=== PATIENT | female | born 1970 | race Caucasian/White ===

== ENCOUNTER 2024-11-20 06:22 | Emergency (ER) | payer BC, SELFPAY ==
[2024-11-20 06:24] VITALS: BP 166/102
--- NOTE | 2024-11-20 06:48 | ED.GENMED ---
History of Present Illness
General
Chief Complaint: Back Pain
Source: patient
Exam Limitations: none
Time Seen by Provider: 11/20/24 06:32
Nursing documentation reviewed up to this point in time: agreed with
History of Present Illness
History of Present Illness:
54-year-old female presents emergency room due to left-sided back pain, numbness and inability of the bathroom. She is having trouble urinating and having bowel movements.
Past History
Past History
ED Past Medical History: Cancer (Breast cancer) and Other (Back pain, sciatica)
ED Past Surgical History: Other (Bilateral mastectomy)
Social History
Tobacco: Non-smoker
Alcohol: None
Drug: None
Review of Systems
Review of Systems
Allergies reviewed?: Yes
All Other Systems: Not applicable
Constitutional: Reports no symptoms
EENT: Reports no symptoms
Respiratory: Reports no symptoms
Cardiac: Reports no symptoms
ABD/GI: Reports no symptoms
: Reports difficulty voiding
Musculoskeletal: Reports back pain
Skin: Reports no symptoms
Neurological: Reports numbness
Endocrine: Reports no symptoms
Hematologic/Lymphatic: Reports no symptoms
Psychiatric: Reports no symptoms
Phy Exam
Physical Exam
Physical Exam:
Physical Exam
General: Afebrile, blood pressure 166/102
Neck: supple. no meningeal signs. normal posterior pharynx
Heart: s1/s2 tachycardia, no murmur. equal radial
pulses.
HEENT: Pupils equal round reactive to light, EOMI
Lungs: no acute respiratory distress. clear bilaterally
Abdomen: normal bowel sounds. not tender. no CVAT
Neuro: alert and oriented. no focal neurological deficits cranial nerves II through XII intact
Skin: no rash
Psychiatric: well kept. interactive and cooperative
Extremities: no edema. no calf tenderness. negative homans. good distal pulses
Course
Orders/Labs/Results
Orders:
Orders
11/20/24 06:43
Bladder Scan- Treatment ONCE
IV Insert/Care/Rem.- Treatment PRN
11/20/24 07:16
Complete Blood Count/With Diff Urgent
Comprehensive Metabolic Panel Urgent
Urinalysis Reflex To Culture Urgent
Date Specimen was Collected: 11/20/24
Time Specimen was Collected: 07:03
Urine Microscopic Reflex Cult Urgent
Urine Culture Urgent
KARL Source: U
Specimen Description:
Obtained by: Random
Date Specimen was Collected: 11/20/24
Time Specimen was Collected: 07:03
11/20/24 07:24
MR Lumbar Without Contrast Urgent
Comment:
Reason For Exam: numbness left leg/groin/buttocks inability to void
Recent pill cam endoscopy?: No
11/20/24 08:02
Ketorolac [Toradol] 15 mg IV NOW STA
11/20/24 10:56
Acetaminophen [Tylenol] 650 mg PO NOW STA
11/20/24 11:19
CT Pelvis With Iv Contrast Urgent
Comment: concern for sacral met, pls include all sacrum
Reason For Exam: low back pain, difficulty urinating
11/20/24 13:24
HYDROmorphone [Dilaudid] 1 mg .ROUTE .STK-MED ONE
Ondansetron Injectable [Zofran] 4 mg .ROUTE .STK-MED ONE
11/20/24 13:27
HYDROmorphone [Dilaudid] 1 mg IV NOW STA
Ondansetron Injectable [Zofran] 4 mg IV NOW STA
Abnormal Lab Results
11/20/24
07:16
RBC 4.19 L 10^6/uL
(4.20-5.40)
Hct 35.9 L %
(37.0-47.0)
BUN 20 H mg/dl
(7-17)
Ur Occult Blood Reflex 2+ A
(Negative)
Leukocyte Esterase Rfl 3+ A
(Negative)
Urine RBC 3-6 A /HPF
(0-2)
Urine Bacteria (Reflex) Moderate A
(Negative)
Urine Albumin (Reflex) 1+ A
(Neg - Trace)
11/20/24 07:16
11/20/24 07:16
Vital Signs
Initial and Last Documented VS:
Initial Vital Signs
Temp Pulse Resp BP Pulse Ox
98.1 F 118 26 166/102 98
11/20/24 06:24 11/20/24 06:24 11/20/24 06:24 11/20/24 06:24 11/20/24 06:24
Last Documented Vital Signs
Temp Pulse Resp BP Pulse Ox
98.1 F 94 18 152/85 98
11/20/24 06:24 11/20/24 13:23 11/20/24 13:23 11/20/24 13:23 11/20/24 06:24
MDM/Problems Addressed
Differential Diagnosis Includes:
Cauda equina, metastasis, radiculopathy
MDM/Problems Addressed:
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 Stable for discharge follow-up with oncology orthopedics.
Chronic conditions affecting care: Cancer
Acute Exacerbation and/or Progression of Chronic Illness: Cancer
*Radiology
Radiology exam reviewed: radiology read reviewed (CT and MRI shows soft tissue lesion lumbosacral region and S1 nerve root impingement)
*Pulse Oximetry
Patient hypoxic: no
*Critical Care Note
Total Time (30-74mins, 75-104mins- exclusive of procedures): Not Applicable
Patient Management
Social determinants of health affecting care: Living situation and Strong social support
Discussion with other providers: Radiologist
Escalation/DeEscalation of care consider admission/obs:
Admit not indicated
ED Attending Note
-
Portions of this chart may have been created with voice recognition software.� Occasional wrong word or��sound alike� substitutions may have occurred due to the inherent limitations of voice recognition software.
Discharge Plan
Departure
Patient Disposition: Home (Routine Discharge)
Date of Disposition: 11/20/24
Time of Disposition: 14:18
Patient with high blood pressure during this ER visit?: Yes
Condition: Good
Discharge Problem:
Sciatica associated with disorder of lumbosacral spine, Soft tissue mass
Instructions: Sciatica (DC), Radiculopathy (DC)
Prescriptions:
New
tramadol 50 mg tablet
50 mg PO Q8H PRN (Reason: Pain) Qty: 10 0RF
Referrals:
Jason Peters, [Family Provider] -
Activity Restrictions/Additional Instructions:
Follow-up with your orthopedist, as well as your oncologist. Return for any concerns.
Interventions
Interventions:
*Risk Screen - Suicide Last Done: 11/20/24 06:24
*General Assessment Last Done: 11/20/24 07:05
*Neglect/Abuse Screening Last Done: 11/20/24 06:24
ED- Fall Risk Assessment Last Done: 11/20/24 07:05
*ED COVID-19 Vaccine History Last Done: 11/20/24 07:05
ED-Musculoskeletal Assessment Last Done: 11/20/24 07:05
Discharge Date and Time
Print Language: BELARUSIAN
[2024-11-20 07:32] LABS: % Basophils 0.6 % (0-2); % Eosinophils 1.2 % (0-6); % Immature Granulocytes 0.2 % (0-0.5); % Lymphocytes 22.3 % (20.5-51.1); % Monocytes 5.4 % (1.7-9.3); % Neutrophils 70.3 % (42.2-75.2); Absolute Basophils 0.1 10^3/uL (0-0.2); Absolute Eosinophils 0.1 10^3/uL (0-0.7); Absolute Lymphocytes 1.9 10^3/uL (1.2-3.4); Absolute Monocytes 0.5 10^3/uL (0.1-0.6); Absolute Neutrophils 5.8 10^3/uL (1.4-6.5); Hematocrit 35.9 % (37.0-47.0); Hemoglobin 12.3 g/dL (12.0-16.0); Mean Corp Hgb Conc. 34.3 g/dL (33.0-37.0); Mean Corpuscular Hgb 29.4 pg (27.0-31.0); Mean Corpuscular Volume 85.7 fL (81.0-99.0); Mean Platelet Volume 8.7 fL (7.4-10.4); Nucleated Red Blood Cells % 0 %; Platelet Count 257 10^3/uL (130-400); Red Blood Cell Count 4.19 10^6/uL (4.20-5.40); Red Cell Dist. Width 12.8 % (11.5-14.5); White Blood Cell Count 8.3 10^3/uL (4.8-10.8)
[2024-11-20 07:57] LABS: ALT (SGPT) 25 U/L (0-35); AST (SGOT) 25 U/L (14-36); Albumin 4.6 g/dl (3.5-5.0); Alkaline Phosphatase 121 U/L (38-126); Blood Urea Nitrogen 20 mg/dl (7-17); Calcium 9.5 mg/dl (8.4-10.2); Carbon Dioxide 24 mmol/L (22-30); Chloride 105 mmol/L (98-107); Glucose 94 mg/dl (70-99); Potassium 3.5 mmol/L (3.5-5.1); Sodium 140 mmol/L (135-145); Total Protein 7.1 g/dl (6.3-8.2); eGFR > 60.00
[2024-11-20 08:01] LABS: Urine Albumin 1+ (Neg - Trace); Urine Bilirubin Negative (Negative); Urine Character Clear (Clear); Urine Color Yellow; Urine Glucose Negative (Negative); Urine Ketone Negative (Negative); Urine Leukocyte 3+ (Negative); Urine Nitrite Negative (Negative); Urine Occult Blood 2+ (Negative); Urine Specific Gravity 1.015 (<1.030); Urine Urobilinogen Negative (Neg - 1+)
[2024-11-20] MEDS: TORADOL 15 MG IV (08:09)
[2024-11-20 08:31] LABS: Urine Squamous Cell >30 /LPF (Few)
[2024-11-20 08:33] LABS: Urine Bacteria Moderate (Negative)
[2024-11-20] MEDS: TYLENOL 650 MG PO (11:06)
[2024-11-20 13:23] VITALS: BP 152/85
[2024-11-20] MEDS: ZOFRAN 4 MG IV (13:28)
[2024-11-20] MEDS: DILAUDID 1 MG IV (13:28)
== END 2024-11-20 14:39 | disposition home or self-care (01) ==
LOC: EMR 06:22
PROVIDERS: EMERGENCY PHYSICIAN Emergency Medicine; FAMILY PHYSICIAN Family Medicine Sports Medicine
DX: M51.16 Intervertebral disc disorders with radiculopathy, lumbar region (principal); M51.17 Intervertebral disc disorders with radiculopathy, lumbosacral region; Z85.3 Personal history of malignant neoplasm of breast; Z90.13 Acquired absence of bilateral breasts and nipples
CPT/HCPCS: 99285; 96374; 96375; 72148; 72193; 80053; 81003; 81015; 85025; 87077; 87086; Q9967